=== PATIENT | female | born 1990 | race Two or more races ===

== ENCOUNTER 2024-03-28 03:19 | Emergency (ER) | payer MEDICAID, SELFPAY ==
[2024-03-28 03:19] VITALS: BMI 34.5
[2024-03-28 03:25] VITALS: BP 149/96; PULSE 90; RESP 19; TEMP 36.8; O2SAT 97
--- NOTE | 2024-03-28 03:31 | XR_ITS ---
Examination: Shoulder,right, 3 views Technique: Shoulder AP internal rotation, AP external rotation, Y view shoulder, 3 views Exam date and time :March 28, 2024 0335 hrs. Indications: Right shoulder pain today worse overnight Findings: No shoulder fracture or dislocation Significant calcific tendinitis Mild to moderate narrowing glenohumeral joint Impression: Significant right shoulder calcific tendinitis
--- NOTE | 2024-03-28 03:32 | PD.EDUPEX ---
Upper Extremity Injury RME/HPI General Chief Complaint: Extremity Injury, Upper Stated Complaint: R SHOULDER PAIN Source: patient Arrival date/time: 03/28/24 03:19 33-year-old female presents emergency department complaining of right shoulder pain that is been ongoing for history of history. 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 Mode of arrival: ambulatory Limitations: no limitations Related Data Previous Rx's ?Medication ?Instructions ?Recorded cyclobenzaprine 10 mg tablet 10 mg PO TID PRN muscle spasm #10 03/28/24 tabs ibuprofen 600 mg tablet 600 mg PO Q8H PRN pain #20 tabs 03/28/24 Allergies Allergy/AdvReac Type Severity Reaction Status Date / Time No Known Allergies Allergy Verified 03/28/24 03:21 Review of Systems Review of Systems Systems Reviewed: All systems reviewed, normal except as documented Constitutional Constitutional: Reports system reviewed and no additional complaints, except as documented, Denies body ache(s), Denies chills and Denies fever(s) Eyes Eyes: Reports system reviewed and no additional complaints, except as documented and Denies change in vision ENT Ears, Nose, Mouth, and Throat: Reports system reviewed and no additional complaints, except as documented, Denies disequilibrium, Denies dizziness, Denies sore throat and Denies vertigo Cardiovascular Cardiovascular: Reports system reviewed and no additional complaints, except as documented, Denies chest pain and Denies dyspnea Respiratory Respiratory: Reports system reviewed and no additional complaints, except as documented, Denies chest congestion, Denies cough and Denies dyspnea Gastrointestinal Gastrointestinal: Reports system reviewed and no additional complaints, except as documented, Denies abdominal pain, Denies nausea and Denies vomiting Musculoskeletal Musculoskeletal: Reports system reviewed and no additional complaints, except as documented, Denies abnormal gait and Reports arthralgias Integumentary/Breasts Skin/Breast: Reports system reviewed and no additional complaints, except as documented, Denies erythema, Denies rash and Denies wounds Neurologic Neurologic: Reports system reviewed and no additional complaints, except as documented, Denies abnormal gait, Denies disequilibrium, Denies dizziness and Denies vertigo Past Medical History Social History SMOKING STATUS: Never smoker ED Exam General Limitations: Present no limitations General appearance: Present alert and in no apparent distress Head Head exam: Present atraumatic Eye Eye exam: Present normal appearance, PERRL and EOMI ENT ENT exam: Present normal exam, normal oropharynx and mucous membranes moist Neck Neck exam: Present normal inspection, full ROM and trachea midline Chest Chest inspection: Present normal inspection and symmetric chest wall rise Respiratory Respiratory exam: Present normal lung sounds bilaterally Cardiovascular Cardiovascular exam: Present regular rate, normal rhythm and normal heart sounds Abdominal Exam Abdominal exam: Present soft and normal bowel sounds Extremities Exam Extremities exam: Present normal inspection and full ROM Expanded Upper Extremity Exam Shoulder exam: Present full ROM (Limited active range of motion right shoulder) and tenderness (Right shoulder) Vascular exam: Normal capillary refill Back Exam Back exam: Present normal inspection and full ROM Neurological Exam Neurological exam: Present alert, oriented X3 and CN II-XII intact Psychiatric Psychiatric exam: Present normal affect and normal mood Skin Skin exam: Present warm, dry, intact and normal color Course Quality Measures none Orders Category Date Time Status XR shoulder RT min 2V Stat Exams 03/28/24 03:31 Taken CYCLObenzaPRINE [Flexeril] Med 03/28/24 03:31 Discontinued 5 mg PO X1 ONE Ketorolac Inj [Toradol Inj] Med 03/28/24 03:31 Discontinued 30 mg IM X1 ONE Vital Signs Vital signs: Vital Signs Temperature 98.3 F 03/28/24 03:25 Pulse Rate 90 03/28/24 03:25 Respiratory Rate 19 03/28/24 03:25 Blood Pressure 149/96 H 03/28/24 03:25 Pulse Oximetry (%) 97 03/28/24 03:25 Oxygen Delivery Method Room Air 03/28/24 03:25 97% room air within normal limits Extremity Injury MDM Narrative MDM Narrative:: 33-year-old female presents emergency department complaining of right shoulder pain that is been ongoing for history of history. 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 X-ray right shoulder negative for acute fracture or dislocation based on my interpretation. Patient right upper extremity is neurovascularly intact with limited active range of motion. Patient discharged to follow-up with primary care provider and request referral to physical therapy or MRI of right shoulder if symptoms persist. Instructed to return to emergency department for any worsening symptoms or as needed. Patient data External records reviewed:: [facility] previous records Clinical information provided by:: patient Social determinants that could affect healthcare access:: none Patient has the following chronic illnesses:: N/A How is presenting disease/condition affected by chronic disease/condition?: no chronic disease Evaluation data The following diagnostics were reviewed and interpreted by me:: radiology exam(s) Lab and/or radiology exams considered but not ordered:: Ordered Interpretation Summary: Interpreted by me Medications / Prescriptions Medications or Prescriptions considered but not ordered:: Ordered Medication administrations:: Medication Administration History Discontinued Medications Cyclobenzaprine HCl (Cyclobenzaprine 5 Mg Tablet) 5 mg PO X1 ONE Stop: 03/28/24 03:32 Last Admin: 03/28/24 03:48 Dose: 5 mg Documented By: KOBI Ketorolac Tromethamine (Ketorolac Inj 60 Mg/2 Ml Vial) 30 mg IM X1 ONE Stop: 03/28/24 03:32 Last Admin: 03/28/24 03:49 Dose: 30 mg Documented By: KOBI Given Consultations Consultation(s) initiated? (list below): No Diagnosis Upper Extremity Injury Differential Diagnosis: dislocation of shoulder, fracture of humerus and fracture of clavicle Most likely diagnosis given after review of the tests above:: Shoulder pain Admission Indicated Admission indicated?: not indicated Admission Request Was there a request for admission?: No Disposition Plan Disposition Plan: Discharge Discharge Attestation Discharge Attestation: The patient and all family members were given an opportunity to ask questions and understood the discharge instructions. Discharge instructions specifically effects, indications for sooner follow up or return to the emergency department, and the expected course of current diagnosis. Patient condition: Stable Discharge Plan Plan Patient Disposition: HOME (Self Care) Disposition Comment: Stable Prescriptions/Referrals Prescriptions/Med Rec: New cyclobenzaprine 10 mg tablet 10 mg PO TID PRN (Reason: muscle spasm) Qty: 10 0RF ibuprofen 600 mg tablet 600 mg PO Q8H PRN (Reason: pain) Qty: 20 0RF Problem List Clinical Impression: Acute shoulder pain Patient/Caregiver Discharge Instructions Discharge Activity: activity as tolerated Education Materials: YOSI Shoulder Exercises: Side Raise, ED Arthralgia Additional Instructions: Take medication as prescribed for pain. Follow-up with primary care provider and request referral to physical therapy or MRI of shoulder if symptoms persist. Return to emergency department for any worsening symptoms or as needed. Print Language: Kinyarwanda Stand Alone Forms: Jessica Award Info., Patient Portal Info Letter PA/EDELMIRA Supervising Physician PA/EDELMIRA Supervising Physician: Dr. Peters
[2024-03-28] MEDS: CYCLObenzaPRINE 5 MG TABLET PO (03:48)
[2024-03-28] MEDS: KETOROLAC INJ 60 MG/2 ML VIAL 30 MG IM (03:49)
== END 2024-03-28 04:18 | disposition home or self-care (01) ==
PROVIDERS: Emergency Provider Emergency Medicine
DX: M25.511 Pain in right shoulder (principal)
CPT/HCPCS: 73030; 96372; 99283; J1885; A9270